=== PATIENT | female | born 1970 | race Caucasian/White ===

== ENCOUNTER 2016-09-22 20:04 | Emergency (ER) | payer OTHER ==
[~2016-09-22] VITALS: Ht 149.9 cm; Wt 73.0 kg
[~2016-09-22 20:04] MED LIST: ASC500 PO; CITA20TA6 PO; DOCU-144 PO; FLUT16SP17 NASAL; HYDR-3498 PO; LORA10TA3 PO; LORA1TAB PO; MELO-109 PO; OMEG1CAP2 PO
[2016-09-22 20:09] VITALS: Ht 149.9 cm; Wt 73.0 kg
[2016-09-22] MEDS ORDERED: IBUPROFEN 600 MG TAB PO ONE (22:00)
--- NOTE | 2016-09-22 23:10 | RADRPT ---
PROCEDURE: XR Left Ankle. CLINICAL INDICATION: Injury. Pain. TECHNIQUE: Three views of the left ankle were performed. COMPARISON: 11/21/2014 FINDINGS: There are no fractures. Joint relationships are maintained. Ankle mortise is intact. Bone minerali zation is within normal limits. Soft tissues are unremarkable. IMPRESSION: 1. No acute abnormality. RPTAT: HMVK .Mayur Cadena MD, Date Time Electronically viewed and signed by .Mayur Cadena MD, on 09/22/2016 23:10 .K/
--- NOTE | 2016-09-22 23:10 | RADRPT ---
PROCEDURE: XR Left Foot. CLINICAL INDICATION: Trauma. Pain. TECHNIQUE: AP, lateral and oblique views of the left foot was obtained. The images were reviewed on a PACS workstation. COMPARISON: None. FINDINGS: There are no fractures. Joint relationships are maintained. Bone mineralization is within normal l imits. Soft tissues are unremarkable. IMPRESSION: No acute abnormality. RPTAT: HMVK .Mayur Cadena MD, MD Date Time Electronically viewed and signed by .Mayur Cadena MD, on 09/22/2016 23:10 .K/
[2016-09-22] MEDS ORDERED: IBUP-1542 PO (23:38)
--- NOTE | 2016-09-22 23:49 | ERD ---
ER Documentation Chief Complaint Date/Time DATE: 09/22/16 TIME: 23:45 Chief Complaint PT STEPPED WRONG WITH HER L FOOT AND C/O TOE PAIN HPI Patient is a 46-year-old female who presents to the ED with left foot pain she states that she was stepping on a box to reach something in her kitchen and once she put her foot down she developed pain to the bottom of her left foot and her toes. Denies falling or any other trauma. Denies numbness or tingling. Denies radiation of pain up her legs. Denies calf pain. No swelling. She has been icing with minimal relief. She also has a history of chronic sprain in her left ankle and states this might have triggered her current foot pain. She is scheduled for surgery in her ankle next month. ROS All systems reviewed and are negative except as per history of present illness. Medications Home Meds Active Scripts Ibuprofen* (Motrin*) 600 Mg Tab, 600 MG PO Q6, #30 TAB Prov:NICO CHU PA-C 09/22/16 Lorazepam* (Lorazepam*) 1 Mg Tablet, 1 MG PO Q8H Y for ANXIETY, #10 TAB Prov:ESTHER LYNCH 04/01/16 Docusate Sodium* (Colace*) 100 Mg Capsule, 100 MG PO BID, #60 CAP Prov:PATRICIO WILD MD 01/09/16 Hydrocodone Bit-Acetaminophen* ([place]*) 5-325 Mg Tab, 1-2 TAB PO Q6 Y for PAIN, #10 TAB Prov:MARGUERITE ROBLERO [employer]ATIVE SERVICES DESIGNER 12/17/15 Reported Medications [place]-3 Acid Ethyl Esters (Lovaza) 1 Gm Capsule, 4 GM PO DAILY, CAP 04/01/16 Ascorbic Acid (Vitamin C) 500 Mg Tab, 1000 MG PO DAILY, TAB 04/01/16 Fluticasone Propionate* (Fluticasone Propionate* Nasal) 50 Mcg/[place] - 16 Gm [place].susp, 1 SPRAY NASAL DAILY, #1 BOTTLE TO EACH NOSTRIL 04/01/16 Loratadine* (Loratadine*) 10 Mg Tablet, 10 MG PO DAILY, #30 TAB 04/01/16 Meloxicam* (Meloxicam*) 7.5 Mg Tablet, 7.5 MG PO DAILY, #30 TAB 04/01/16 Citalopram Hydrobromide* (Citalopram Hydrobromide*) 20 Mg Tablet, 20 MG PO DAILY 11/21/15 Allergies Allergies: Coded Allergies: Penicillins (Verified Allergy, Mild, RASH, 04/01/16) Uncoded Allergies: IV CONTRAST (Allergy, Unknown, RASH, 06/12/15) PMhx/Soc Medical and Surgical Hx: pt denies Medical Hx, pt denies Surgical Hx History of Surgery: Yes (c section) Anesthesia Reaction: No Hx Neurological Disorder: Yes (Migraines) Hx Respiratory Disorders: No Hx Cardiac Disorders: Yes (HLD) Hx Psychiatric Problems: Yes (anxiety) Hx Miscellaneous Medical Probl: Yes (bone on bone she says left ankle in therapy) Hx Alcohol Use: No Hx Substance Use: No Hx Tobacco Use: No Physical Exam Vitals Vital Signs Date Time Temp Pulse Resp B/P Pulse Ox O2 Delivery O2 Flow Rate FiO2 09/22/16 20:09 98.3 81 18 160/76 99 Physical Exam GENERAL: Well-developed, well-nourished female. Appears in no acute distress. LUNG: Clear to auscultation bilaterally. No rhonchi, wheezing, rales or coarse breath sounds. HEART: Regular rate and rhythm. No murmurs, rubs or gallops. Extremities: Equal pulses bilaterally. No peripheral clubbing, cyanosis or edema. No unilateral leg swelling. Tenderness to the bottom of her left foot. No tenderness to her malleoli. No calf tenderness. Negative Homans sign. No erythema or swelling. Range of motion intact. Pulses intact. No open wounds or lacerations no deformities or step-offs NEUROLOGIC: Alert and oriented. Moving all four extremities. 5/5 strength in all extremities. Normal speech. Steady gait. SKIN: Normal color. Warm and dry. No rashes or lesions. Capillary refill < 2 seconds Results 24 hrs Current Medications Medications (Trade) Dose Ordered Sig/Gladys Route PRN Reason Start Time Stop Time Status Last Admin Dose Admin Ibuprofen (Motrin) 600 mg ONCE ONCE PO 09/22/16 22:00 09/22/16 22:01 DC 09/22/16 21:50 Procedures/MDM ER COURSE: I kept the patient and/or family informed of laboratory and diagnostic imaging results throughout the emergency room course. EKG, MONITORS, & DIAGNOSTIC IMAGING: [place] [id number] Radiology Main Line: [phone] DIAGNOSTIC IMAGING REPORT Patient: KINZA RAMIREZ : 1970 Age: 46 Sex: F MR #: [id number] DOS: 09/22/162133 Ordering MD: NICO CHU PA-C Location: [facility] Room/Bed: PROCEDURE: XR Left Ankle. CLINICAL INDICATION: Injury. Pain. TECHNIQUE: Three views of the left ankle were performed. COMPARISON: 11/21/2014 FINDINGS: There are no fractures. Joint relationships are maintained. Ankle mortise is intact. Bone mineralization is within normal limits. Soft tissues are unremarkable. IMPRESSION: 1. No acute abnormality. RPTAT: HMVK .Mayur Cadena MD, Date Time Electronically viewed and signed by .Mayur Cadena MD, MD on 09/22/2016 23:10 .K/ CC: NICO CHU PA-C [place] [id number] Radiology Main Line: [phone] DIAGNOSTIC IMAGING REPORT Patient: KINZA RAMIREZ : 1970 Age: 46 Sex: F MR #: [id number] DOS: 09/22/162133 Ordering MD: NICO CHU PA-C Location: [facility] Room/Bed: PROCEDURE: XR Left Foot. CLINICAL INDICATION: Trauma. Pain. TECHNIQUE: AP, lateral and oblique views of the left foot was obtained. The images were reviewed on a PACS workstation. COMPARISON: None. FINDINGS: There are no fractures. Joint relationships are maintained. Bone mineralization is within normal limits. Soft tissues are unremarkable. IMPRESSION: No acute abnormality. RPTAT: HMVK .Mayur Cadena MD, MD Date Time Electronically viewed and signed by .Mayur Cadena MD, on 09/22/2016 23:10 .K/ CC: NICO CHU PA-C PROCEDURES: [] MEDICATIONS: Ibuprofen. Told medication well with no adverse reaction MEDICAL DECISION MAKING: This is a 46-year-old female who presents with left foot pain. Vital signs were reviewed. Patient is afebrile. Patient is not hypoxic. Patient is not toxic or ill-appearing. Patient has a history of chronic ankle sprain in her left ankle. Her current injury is likely related to exacerbation of this. Low suspicion for dislocation, fracture, septic joint, compartment syndrome, osteomyelitis, cellulitis, avascular necrosis, neurological injury, vascular injury, tendon laceration. I cannot rule out any tendon or ligament injury. Patient to follow-up with orthopedics. Postop shoe was given to patient in the ED. Neurovascular intact post placement. DISCHARGE: At this time, patient is stable for discharge and outpatient management with no new complaints during the ER course. Patient was sent home with ibuprofen and post op shoe. .. Patient will be discharged home with instructions to recheck for new or worsening symptoms such as fever, nausea, weakness, LOC and to follow up with primary care in the next 1-2 days. Patient was advised to return to the ER for any new or worsening symptoms. Plan was discussed and patient and/ or family understands and agrees. Home instructions were given. Departure Diagnosis: Primary Impression: Foot pain Laterality: left Qualified Code: M79.672 - Left foot pain Condition: Stable NICO CHU PA-C Sep 22, 2016 23:49
[2016-09-23 00:25] VITALS: BP 177/87; PULSE 60; RESP 18; TEMP 98.3
== END 2016-09-23 00:25 | disposition home or self-care (01) ==
LOC: FTE 20:04
DX: S99.922A Unspecified injury of left foot, initial encounter (principal); X50.1XXA Overexertion from prolonged static or awkward postures, initial encounter; Y92.000 Kitchen of unspecified non-institutional (private) residence as the place of occurrence of the external cause
CPT/HCPCS: 73610; 73630; Z7502; Z7610

== ENCOUNTER 2016-10-27 21:51 | Emergency (ER) | payer OTHER ==
[~2016-10-27] VITALS: Ht 149.9 cm; Wt 72.0 kg
[~2016-10-27 21:51] MED LIST changes: +IBUP-1542 PO
[2016-10-27 21:57] VITALS: Ht 149.9 cm; Wt 72.0 kg
[2016-10-27] MEDS ORDERED: ATOR20TA38 PO (22:40)
[2016-10-27 22:48] LABS: ADD SCAN DIFF NO
[2016-10-27 23:01] LABS: ALBUMIN 4.7 g/dl (3.3-4.9); CHLORIDE 102 mmol/L (97-110)
[2016-10-27 23:02] LABS: SODIUM 146 mmol/L (135-144)
[2016-10-27 23:04] LABS: ALANINE AMINOTRANSFERASE 34 IU/L (13-69); ALKALINE PHOSPHATASE 92 IU/L (42-121); ANION GAP 20 (8-16); ASPARTATE AMINO TRANSFERASE 30 IU/L (15-46); BILIRUBIN,INDIRECT 0.3 mg/dl (0-1.1); BILIRUBIN,TOTAL 0.3 mg/dl (0.2-1.3); BLOOD UREA NITROGEN 13 mg/dl (7-20); CARBON DIOXIDE 27 mmol/L (21-31); CREATININE 0.79 mg/dl (0.44-1.00); TOTAL PROTEIN 8.3 g/dl (6.1-8.1)
[2016-10-27 23:05] LABS: CALCIUM 9.2 mg/dl (8.4-10.2); GLUCOSE 123 mg/dl (70-220)
[2016-10-27 23:09] LABS: INR 0.89; PT RATIO 0.9
[2016-10-27 23:10] LABS: PARTIAL THROMBOPLASTIN TIME 24.2 Sec (25.0-35.0)
[2016-10-27 23:14] LABS: B-TYPE NATRIURETIC PEPTIDE 35 PG/ML (0-125); BASOPHILS % 0.4 % (0.0-2.0); EOSINOPHILS # 0.1 10^3/ul (0.0-0.5); EOSINOPHILS % 1.3 % (0.0-7.0); HEMATOCRIT 38.3 % (37.0-47.0); HEMOGLOBIN 13.2 g/dl (12.0-16.0); MEAN CORPUSCULAR HEMOGLOBIN 30.5 pg (29.0-33.0); MEAN CORPUSCULAR HGB CONC 34.5 g/dl (32.0-37.0); MEAN CORPUSCULAR VOLUME 88.5 fl (82.0-101.0); MEAN PLATELET VOLUME 11.3 fl (7.4-10.4); MONOCYTE # 0.3 10^3/ul (0.3-0.9); NEUTROPHILS % 54.8 % (39.0-77.0); PLATELET COUNT 223 10^3/UL (140-415); RED BLOOD COUNT 4.33 10^6/ul (4.20-5.40); RED CELL DISTRIBUTION WIDTH 12.2 % (11.5-14.5); WHITE BLOOD COUNT 5.5 10^3/ul (4.8-10.8)
[2016-10-27 23:17] LABS: TROPONIN-I < 0.012 ng/ml (0.00-0.12)
[2016-10-27 23:19] LABS: POTASSIUM 2.9 mmol/L (3.5-5.1)
--- NOTE | 2016-10-27 23:26 | RADRPT ---
PROCEDURE: XR Chest. CLINICAL INDICATION: Dyspnea. TECHNIQUE: Single frontal view of the chest was obtained COMPARISON: 04/01/2016. FINDINGS: The heart and mediastinum are within normal limits. The lungs are clear. There is no pleural effusion or pneumothorax. IMPRESSION: No acute disease. RPTAT: [facility] Physician Dae Date Time Electronically viewed and signed by Costa Garcia Physician on 10/27/2016 23:26 RS/
[2016-10-27] MEDS ORDERED: POTASSIUM CHLORIDE (SR) 20 MEQ TAB PO STA (23:27)
[2016-10-28] MEDS ORDERED: HYDROCODONE/HOMATROPINE 5ML CUP PO ONE
[2016-10-28] MEDS ORDERED: AZIT250T94 PO (01:21)
[2016-10-28] MEDS ORDERED: PROM5SYR2 PO (01:21)
[2016-10-28] MEDS ORDERED: CETI1TAB6 PO (01:21)
[2016-10-28] MEDS ORDERED: PRED20TA PO (01:21)
--- NOTE | 2016-10-28 01:24 | ERD ---
ER Documentation Chief Complaint Date/Time DATE: 10/28/16 TIME: 01:22 Chief Complaint Pt with cough X 4 days and SOB and anxious 1 hour and chest pressure. HPI This is a very pleasant 46-year-old female who comes in with a cough for 4 days. She is also very anxious. Cough is mildly productive in the past 4 days. No fevers no chills. No other current complaints. ROS All systems reviewed and are negative except as per history of present illness. Medications Home Meds Active Scripts Cetirizine/Pseudoephedrine (Zyrtec-D) 5-120 Mg Tab.er.12h, 1 TAB PO Q12, #60 TAB Prov:ESTHER LYNCH 10/28/16 Promethazine HCl/Codeine (Prometh-Codein 6.25-10 mg/5 ml) 5 Ml Syrup, 5 ML PO TID for 5 Days Prov:ESTHER LYNCH. 10/28/16 Prednisone* (Prednisone*) 20 Mg Tab, 40 MG PO DAILY for 4 Days, TAB Prov:ESTHER LYNCH 10/28/16 Azithromycin* (Zithromax*) 250 Mg Tablet, 250 MG PO .ZPACK DIRECTED, #6 TAB TAKE 500 MG (2 TABS) THE FIRST DAY THEN 250 MG (1 TAB) DAYS 2-5 Prov:ESTHER LYNCH 10/28/16 Docusate Sodium* (Colace*) 100 Mg Capsule, 100 MG PO BID, #60 CAP Prov:PATRICIO WILD MD 01/09/16 Reported Medications Atorvastatin Calcium* (Atorvastatin Calcium*) 20 Mg Tablet, 20 MG PO QHS, #30 TAB 10/27/16 [place]-3 Acid Ethyl Esters (Lovaza) 1 Gm Capsule, 4 GM PO DAILY, CAP 04/01/16 Ascorbic Acid (Vitamin C) 500 Mg Tab, 1000 MG PO DAILY, TAB 04/01/16 Loratadine* (Loratadine*) 10 Mg Tablet, 10 MG PO DAILY, #30 TAB 04/01/16 Discontinued Reported Medications Fluticasone Propionate* (Fluticasone Propionate* Nasal) 50 Mcg/[place] - 16 Gm [place].susp, 1 SPRAY NASAL DAILY, #1 BOTTLE TO EACH NOSTRIL 04/01/16 Meloxicam* (Meloxicam*) 7.5 Mg Tablet, 7.5 MG PO DAILY, #30 TAB 04/01/16 Citalopram Hydrobromide* (Citalopram Hydrobromide*) 20 Mg Tablet, 20 MG PO DAILY 11/21/15 Discontinued Scripts Ibuprofen* (Motrin*) 600 Mg Tab, 600 MG PO Q6, #30 TAB Prov:NICO CHU PALuizC 09/22/16 Lorazepam* (Lorazepam*) 1 Mg Tablet, 1 MG PO Q8H Y for ANXIETY, #10 TAB Prov:ESTHER LYNCH 04/01/16 Hydrocodone Bit-Acetaminophen* ([place]*) 5-325 Mg Tab, 1-2 TAB PO Q6 Y for PAIN, #10 TAB Prov:MARGUERITE ROBLERO NP 12/17/15 Allergies Allergies: Coded Allergies: Penicillins (Verified Allergy, Mild, RASH, 04/01/16) Uncoded Allergies: IV CONTRAST (Allergy, Unknown, RASH, 06/12/15) PMhx/Soc History of Surgery: Yes (c section) Anesthesia Reaction: No Hx Neurological Disorder: Yes (Migraines) Hx Respiratory Disorders: No Hx Cardiac Disorders: Yes (HLD) Hx Psychiatric Problems: Yes (anxiety) Hx Miscellaneous Medical Probl: Yes (bone on bone she says left ankle in therapy) Hx Alcohol Use: Yes (occasional) Hx Substance Use: No Hx Tobacco Use: No Smoking Status: Never smoker Physical Exam Vitals Vital Signs Date Time Temp Pulse Resp B/P Pulse Ox O2 Delivery O2 Flow Rate FiO2 10/28/16 00:31 95 18 134/85 100 Room Air 10/27/16 21:57 97.7 106 18 176/88 100 Physical Exam Const: [] Head: Atraumatic Eyes: Normal Conjunctiva ENT: Normal External Ears, Nose and Mouth. Neck: Full range of motion..~ No meningismus. Resp: Clear to auscultation bilaterally Cardio: Regular rate and rhythm, no murmurs Abd: Soft, non tender, non distended. Normal bowel sounds Skin: No petechiae or rashes Back: No midline or flank tenderness Ext: No cyanosis, or edema Neur: Awake and alert Psych: Normal Mood and Affect Result Diagram: 3/20/17 2230 3/20/17 2230 Results 24 hrs Laboratory Tests Test 10/27/16 22:30 Activated Partial Thromboplast Time 24.2Sec Alanine Aminotransferase (ALT/SGPT) 34IU/L Albumin 4.7g/dl Albumin/Globulin Ratio 1.30 Alkaline Phosphatase 92IU/L Anion Gap 20 Aspartate Amino Transf (AST/SGOT) 30IU/L B-Type Natriuretic Peptide 35PG/ML Basophils # 0.010^3/ul Basophils % 0.4% Blood Urea Nitrogen 13mg/dl Calcium Level 9.2mg/dl Carbon Dioxide Level 27mmol/L Chloride Level 102mmol/L Creatinine 0.79mg/dl Direct Bilirubin 0.00mg/dl Eosinophils # 0.110^3/ul Eosinophils % 1.3% Globulin 3.60g/dl Glucose Level 123mg/dl Hematocrit 38.3% Hemoglobin 13.2g/dl INR International Normalized Ratio 0.89 Indirect Bilirubin 0.3mg/dl Lymphocytes # 2.010^3/ul Lymphocytes % 37.0% Mean Corpuscular Hemoglobin 30.5pg Mean Corpuscular Hemoglobin Concent 34.5g/dl Mean Corpuscular Volume 88.5fl Mean Platelet Volume 11.3fl Monocytes # 0.310^3/ul Monocytes % 6.0% Neutrophils # 3.010^3/ul Neutrophils % 54.8% Nucleated Red Blood Cells # 0.010^3/ul Nucleated Red Blood Cells % 0.0/100WBC Platelet Count 29336^3/UL Potassium Level 2.9mmol/L Prothrombin Time 12.0Sec Prothrombin Time Ratio 0.9 Red Blood Count 4.3310^6/ul Red Cell Distribution Width 12.2% Sodium Level 146mmol/L Total Bilirubin 0.3mg/dl Total Protein 8.3g/dl Troponin I < 0.012ng/ml White Blood Count 5.510^3/ul Current Medications Medications (Trade) Dose Ordered Sig/Gladys Route PRN Reason Start Time Stop Time Status Last Admin Dose Admin Potassium Chloride (Klor-Con 20) 40 meq ONCE STAT PO 10/27/16 23:27 10/27/16 23:31 DC 10/27/16 23:34 Hydrocodone Bit/ Homatropine Methylb (Hycodan Liquid) 5 ml ONCE ONCE PO 10/28/16 00:00 10/28/16 00:01 DC 10/28/16 00:41 Procedures/MDM EKG: Rate/Rhythm: Normal Sinus Rhythm QRS, ST, T-waves: No changes consistent w/ acute ischemia Impression: No evidence of ischemia or arrhythmia Chest X-ray 1V Interpreted by me: Soft Tissue: No acute abnormalities Bones: No acute abnormalities Mediastinum/Cardiac Silhouette/Lungs: No acute abnormalities Medical decision-makin-year-old female comes in essentially for bronchitic cough. She feels much better. At this point clinically stable. Negative cardiac workup. Discharged home with antibiotics and breathing treatments and prednisone. Follow with PCP. Return for worsening symptoms. Departure Diagnosis: Primary Impression: Cough Condition: Stable Patient Instructions: Bronchitis, Antiobiotic Treatment (Adult) ESTHER LYNCH Oct 28, 2016 01:24
[2016-10-28 01:32] VITALS: BP 138/77; PULSE 97; RESP 16
== END 2016-10-28 01:40 | disposition home or self-care (01) ==
LOC: E/R 21:51
DX: R05 Cough (principal); R06.02 Shortness of breath
CPT/HCPCS: 36415; 71010; 80053; 83880; 84484; 85025; 85610; 85730; 93005; Z7502; Z7610

== ENCOUNTER 2016-12-09 14:13 | Emergency (ER) | payer OTHER ==
[~2016-12-09] VITALS: Ht 152.4 cm; Wt 71.5 kg
[~2016-12-09 14:13] MED LIST changes: +ATOR20TA38 PO; +AZIT250T94 PO; +CETI1TAB6 PO; -CITA20TA6 PO; -FLUT16SP17 NASAL; -HYDR-3498 PO; -IBUP-1542 PO; -LORA1TAB PO; -MELO-109 PO; +PRED20TA PO; +PROM5SYR2 PO
[2016-12-09 14:54] VITALS: Ht 152.4 cm; Wt 71.5 kg
[2016-12-09] MEDS ORDERED: DICLOFENAC SODIUM 37.5 MG/ML VIAL IV STA (15:55)
[2016-12-09] MEDS ORDERED: ONDANSETRON 4 MG INJ IV STA (15:55)
[2016-12-09] MEDS ORDERED: SOD CHLORIDE 0.9% 1,000 ML IV STA (15:55)
[2016-12-09 16:36] LABS: ADD SCAN DIFF NO
[2016-12-09 16:39] LABS: BASOPHILS % 0.1 % (0.0-2.0); EOSINOPHILS % 0.4 % (0.0-7.0); HEMATOCRIT 40.7 % (37.0-47.0); HEMOGLOBIN 13.8 g/dl (12.0-16.0); LYMPHOCYTES # 0.8 10^3/ul (0.8-2.9); LYMPHOCYTES % 8.9 % (15.0-51.0); MEAN CORPUSCULAR HGB CONC 33.9 g/dl (32.0-37.0); MEAN CORPUSCULAR VOLUME 88.5 fl (82.0-101.0); MEAN PLATELET VOLUME 11.3 fl (7.4-10.4); MONOCYTE # 0.4 10^3/ul (0.3-0.9); MONOCYTES % 4.7 % (0.0-11.0); NEUTROPHIL # 7.3 10^3/ul (1.6-7.5); NEUTROPHILS % 85.5 % (39.0-77.0); PLATELET COUNT 230 10^3/UL (140-415); RED CELL DISTRIBUTION WIDTH 12.5 % (11.5-14.5); WHITE BLOOD COUNT 8.5 10^3/ul (4.8-10.8)
[2016-12-09 16:49] LABS: ALBUMIN 4.8 g/dl (3.3-4.9)
[2016-12-09 16:51] LABS: BILIRUBIN,INDIRECT 1.5 mg/dl (0-1.1); BILIRUBIN,TOTAL 1.5 mg/dl (0.2-1.3); CREATININE 0.78 mg/dl (0.44-1.00)
[2016-12-09 16:52] LABS: ALBUMIN/GLOBULIN RATIO 1.33; CALCIUM 9.7 mg/dl (8.4-10.2); TOTAL PROTEIN 8.4 g/dl (6.1-8.1)
[2016-12-09] MEDS ORDERED: IMO2 PO (17:36)
[2016-12-09] MEDS ORDERED: CIPR750T3 PO (17:36)
[2016-12-09] MEDS ORDERED: ONDA4TAB14 PO (17:36)
--- NOTE | 2016-12-09 18:31 | ERD ---
ER Documentation Chief Complaint Date/Time DATE: 12/09/16 TIME: 18:26 Chief Complaint Pt with diarrhea, nausea and AP since last night. HPI 46-year-old female with a history of high cholesterol presenting with abdominal pain. She states the pain started yesterday after she returned from [place]. She has been having cramping, intermittent abdominal pain, diffuse, with associated nausea and multiple episodes of nonbloody, watery diarrhea. She denies any associated vomiting. She has had some chills but no fevers. She denies any associated dysuria or hematuria. ROS All systems reviewed and are negative except as per history of present illness. Medications Home Meds Active Scripts Ciprofloxacin Hcl* (Ciprofloxacin Hcl*) 750 Mg Tablet, 750 MG PO DAILY for 3 Days, TAB Prov:LENIN TOM MD 12/09/16 Loperamide Hcl* (Loperamide Hcl*) 2 Mg Cap, 2 MG PO Q4 Y for DIARRHEA, #30 CAP Prov:LENIN TOM MD 12/09/16 Ondansetron (Ondansetron Odt) 4 Mg Tab.rapdis, 4 MG PO Q6H Y for NAUSEA AND/OR VOMITING, #10 TAB Prov:LENIN TOM MD 12/09/16 Cetirizine/Pseudoephedrine (Zyrtec-D) 5-120 Mg Tab.er.12h, 1 TAB PO Q12, #60 TAB Prov:ESTHER LYNCH 10/28/16 Promethazine HCl/Codeine (Prometh-Codein 6.25-10 mg/5 ml) 5 Ml Syrup, 5 ML PO TID for 5 Days Prov:ESTHER LYNCH 10/28/16 Prednisone* (Prednisone*) 20 Mg Tab, 40 MG PO DAILY for 4 Days, TAB Prov:ESTHER LYNCH 10/28/16 Azithromycin* (Zithromax*) 250 Mg Tablet, 250 MG PO .THIAGO DIRECTED, #6 TAB TAKE 500 MG (2 TABS) THE FIRST DAY THEN 250 MG (1 TAB) DAYS 2-5 Prov:ESTHER LYNCH 10/28/16 Docusate Sodium* (Colace*) 100 Mg Capsule, 100 MG PO BID, #60 CAP Prov:PATRICIO WILD MD 01/09/16 Reported Medications Atorvastatin Calcium* (Atorvastatin Calcium*) 20 Mg Tablet, 20 MG PO QHS, #30 TAB 10/27/16 [place]-3 Acid Ethyl Esters (Lovaza) 1 Gm Capsule, 4 GM PO DAILY, CAP 04/01/16 Ascorbic Acid (Vitamin C) 500 Mg Tab, 1000 MG PO DAILY, TAB 04/01/16 Loratadine* (Loratadine*) 10 Mg Tablet, 10 MG PO DAILY, #30 TAB 04/01/16 Allergies Allergies: Coded Allergies: Penicillins (Verified Allergy, Mild, RASH, 12/09/16) Uncoded Allergies: IV CONTRAST (Allergy, Unknown, RASH, 06/12/15) PMhx/Soc History of Surgery: Yes (c section; gallbladder surgery) Anesthesia Reaction: No Hx Neurological Disorder: Yes (Migraines) Hx Respiratory Disorders: No Hx Cardiac Disorders: Yes (hypertension; hypercholesterolemia) Hx Psychiatric Problems: Yes (anxiety) Hx Miscellaneous Medical Probl: Yes (bone on bone she says left ankle in therapy) Hx Alcohol Use: Yes (occasional) Hx Substance Use: No Hx Tobacco Use: No Smoking Status: Never smoker FmHx Family History: No diabetes Physical Exam Vitals Vital Signs Date Time Temp Pulse Resp B/P Pulse Ox O2 Delivery O2 Flow Rate FiO2 12/09/16 14:54 99.7 93 18 136/86 98 Physical Exam Const: No apparent distress, nontoxic Head: Atraumatic Eyes: Normal Conjunctiva, PERRLA, EOMI ENT: Normal External Ears, Nose and Mouth. Neck: Full range of motion..~ No meningismus. Resp: Clear to auscultation bilaterally Cardio: Regular rate and rhythm, no murmurs Abd: Soft, non tender but diffuse discomfort on palpation, non distended. No rebound or guarding. No hepatomegaly. Hyperactive bowel sounds Skin: No petechiae or rashes, no jaundice Back: No midline or flank tenderness Ext: No cyanosis, or edema Neur: Awake and alert Psych: Normal Mood and Affect Result Diagram: 12/09/16 1610 12/09/16 1610 Results 24 hrs Laboratory Tests Test 12/09/16 16:10 White Blood Count 8.510^3/ul Red Blood Count 4.6010^6/ul Hemoglobin 13.8g/dl Hematocrit 40.7% Mean Corpuscular Volume 88.5fl Mean Corpuscular Hemoglobin 30.0pg Mean Corpuscular Hemoglobin Concent 33.9g/dl Red Cell Distribution Width 12.5% Platelet Count 18304^3/UL Mean Platelet Volume 11.3fl Neutrophils % 85.5% Lymphocytes % 8.9% Monocytes % 4.7% Eosinophils % 0.4% Basophils % 0.1% Nucleated Red Blood Cells % 0.0/100WBC Neutrophils # 7.310^3/ul Lymphocytes # 0.810^3/ul Monocytes # 0.410^3/ul Eosinophils # 0.010^3/ul Basophils # 0.010^3/ul Nucleated Red Blood Cells # 0.010^3/ul Sodium Level 140mmol/L Potassium Level 4.0mmol/L Chloride Level 101mmol/L Carbon Dioxide Level 27mmol/L Anion Gap 16 Blood Urea Nitrogen 18mg/dl Creatinine 0.78mg/dl Glucose Level 89mg/dl Calcium Level 9.7mg/dl Total Bilirubin 1.5mg/dl Direct Bilirubin 0.00mg/dl Indirect Bilirubin 1.5mg/dl Aspartate Amino Transf (AST/SGOT) 25IU/L Alanine Aminotransferase (ALT/SGPT) 33IU/L Alkaline Phosphatase 94IU/L Total Protein 8.4g/dl Albumin 4.8g/dl Globulin 3.60g/dl Albumin/Globulin Ratio 1.33 Lipase 140U/L Current Medications Medications (Trade) Dose Ordered Sig/Gladys Route PRN Reason Start Time Stop Time Status Last Admin Dose Admin Sodium Chloride (NS) 1,000 ml @ 1,000 mls/hr Q1H STAT IV 12/09/16 15:55 12/09/16 16:54 DC 12/09/16 16:14 Ondansetron HCl (Zofran Inj) 4 mg ONCE STAT IV 12/09/16 15:55 12/09/16 15:59 DC 12/09/16 16:19 Diclofenac Sodium (Dyloject) 37.5 mg ONCE STAT IV 12/09/16 15:55 12/09/16 15:59 DC 12/09/16 16:19 Procedures/MDM Labs: CBC shows no significant abnormality CMP shows slightly elevated bilirubin, otherwise normal Patient is presenting with diffuse abdominal pain with associated nausea and diarrhea. Differential includes but is not limited to small bowel obstruction, perforated viscous, constipation, volvulus, colitis, gastroenteritis. I have a low suspicion for a pelvic etiology. Blood work showed no significant abnormalities. She was given IV fluids, pain medication and anti-emetics with significant improvement in her symptoms. She was able to tolerate fluids by mouth prior to discharge. I did a repeat abdominal exam on her and it was unremarkable. I have a low suspicion for an acute surgical abdomen at this time. There is no evidence of hepatitis. I suspect her symptoms are secondary to traveler's diarrhea versus viral gastroenteritis. I will discharge the patient with 3 days of Cipro, loperamide as needed, and Zofran as needed. I advised she return for any worsening symptoms in the next 8-12 hours. Patient is amenable to the plan and will return for worsening symptoms. Departure Diagnosis: Primary Impression: Abdominal cramps Additional Impression: Diarrhea Diarrhea type: presumed infectious Qualified Code: A09 - Diarrhea of presumed infectious origin Condition: Stable Patient Instructions: Abdominal Pain, Traveler's Diarrhea (6Y-Adult) Additional Instructions: Return to the ER for any worsening symptoms. LENIN TOM MD December 09, 2016 18:31
[2016-12-09 18:42] VITALS: BP 124/62; PULSE 64; RESP 18; TEMP 98.4
== END 2016-12-09 18:44 | disposition home or self-care (01) ==
LOC: FTE 14:13
DX: R10.84 Generalized abdominal pain (principal); A09 Infectious gastroenteritis and colitis, unspecified; I10 Essential (primary) hypertension; R11.0 Nausea
CPT/HCPCS: 36415; 80053; 83690; 85025; 96374; 96375; J2405; J7030; Z7502; Z7610

== ENCOUNTER 2017-03-27 21:16 | Emergency (ER) | payer OTHER ==
[~2017-03-27] VITALS: Ht 149.9 cm; Wt 73.5 kg
[~2017-03-27 21:16] MED LIST changes: +CIPR750T3 PO; +IMO2 PO; +ONDA4TAB14 PO
[2017-03-27 21:59] VITALS: Ht 149.9 cm; Wt 73.5 kg
--- NOTE | 2017-03-27 23:17 | ERA ---
ER Documentation Chief Complaint Date/Time DATE: 03/27/17 TIME: 23:17 Chief Complaint ABDOMINAL PAIN RADIATING TO LEFT FLANK HPI 5-year-old female presents with a chief complaint of urinary frequency and urgency 1 week. Also describes pelvic fullness. Patient denies fever, chills , inability to tolerate p.o., diarrhea, constipation, dysuria or hematuria. Patient states that the pain radiates the back. No similar symptoms in the past. Patient has taken Advil with minimal relief of symptoms. During my evaluation the patient denied right upper quadrant abdominal pain. Patient denies any aggravating or alleviating factors including food or passing stools. History of cholecystectomy. Denies alcohol or recreational drug use. Patient has no other complaints and describes no other associated manifestations. Nursing notes have been reviewed and are consistent with history given. ROS All systems reviewed and are negative except as per history of present illness. Medications Home Meds Active Scripts Ciprofloxacin Hcl* (Ciprofloxacin Hcl*) 750 Mg Tablet, 750 MG PO DAILY for 3 Days, TAB Prov:LENIN TOM MD 12/09/16 Loperamide Hcl* (Loperamide Hcl*) 2 Mg Cap, 2 MG PO Q4 Y for DIARRHEA, #30 CAP Prov:LENIN TOM MD 12/09/16 Ondansetron (Ondansetron Odt) 4 Mg Tab.rapdis, 4 MG PO Q6H Y for NAUSEA AND/OR VOMITING, #10 TAB Prov:LENIN TOM MD 12/09/16 Cetirizine/Pseudoephedrine (Zyrtec-D) 5-120 Mg Tab.er.12h, 1 TAB PO Q12, #60 TAB Prov:ESTHER LYNCH 10/28/16 Promethazine HCl/Codeine (Prometh-Codein 6.25-10 mg/5 ml) 5 Ml Syrup, 5 ML PO TID for 5 Days Prov:ESTHER LYNCH 10/28/16 Prednisone* (Prednisone*) 20 Mg Tab, 40 MG PO DAILY for 4 Days, TAB Prov:ESTHER LYNCH 10/28/16 Azithromycin* (Zithromax*) 250 Mg Tablet, 250 MG PO .LORICK DIRECTED, #6 TAB TAKE 500 MG (2 TABS) THE FIRST DAY THEN 250 MG (1 TAB) DAYS 2-5 Prov:RITESHPEMAESTHER Jarocho 10/28/16 Docusate Sodium* (Colace*) 100 Mg Capsule, 100 MG PO BID, #60 CAP Prov:PATRICIO WILD MD 01/09/16 Reported Medications Atorvastatin Calcium* (Atorvastatin Calcium*) 20 Mg Tablet, 20 MG PO QHS, #30 TAB 10/27/16 [place]-3 Acid Ethyl Esters (Lovaza) 1 Gm Capsule, 4 GM PO DAILY, CAP 04/01/16 Ascorbic Acid (Vitamin C) 500 Mg Tab, 1000 MG PO DAILY, TAB 04/01/16 Loratadine* (Loratadine*) 10 Mg Tablet, 10 MG PO DAILY, #30 TAB 04/01/16 Allergies Allergies: Coded Allergies: Penicillins (Verified Allergy, Mild, RASH, 12/09/16) Uncoded Allergies: IV CONTRAST (Allergy, Unknown, RASH, 06/12/15) PMhx/Soc History of Surgery: Yes (c section; gallbladder surgery, tubal) Anesthesia Reaction: No Hx Neurological Disorder: Yes (Migraines) Hx Respiratory Disorders: No Hx Cardiac Disorders: Yes (hypertension; hypercholesterolemia) Hx Psychiatric Problems: Yes (anxiety) Hx Miscellaneous Medical Probl: Yes (bone on bone she says left ankle in therapy) Hx Alcohol Use: Yes (occasional) Hx Substance Use: No Hx Tobacco Use: No Smoking Status: Never smoker Physical Exam Vitals Vital Signs Date Time Temp Pulse Resp B/P Pulse Ox O2 Delivery O2 Flow Rate FiO2 03/27/17 21:59 98.6 66 12 163/87 98 Physical Exam Const: Healthy-appearing. No acute distress. Head: Normocephalic, Atraumatic. Eyes: Non-injected; No discharge or foreign body. EOMI and LOIDA bilaterally. Ears: Normal External Ears, EACs clear, TM normal bilaterally without erythema. Nose: Normal external nose; no discharge, septal deviation, or sinus tenderness. Oral: No oral edema visualized. Mucous membranes moist and pink. Neck: No cervical lymphadenopathy or . Trachea midline. Supple ~ No meningismus. Pulm: Good air movement in upper and lower respiratory tracts. No dyspnea, stridor, tripoding or drooling. Clear to auscultation bilaterally. Cardio: Regular rate and rhythm; No murmurs, gallops or rubs auscultated. No JVD grossly observed. Radial and posterior tibial pulses 2+ bilaterally. No cyanosis. Capillary refill less than 2 seconds. Abd: Soft, non tender, non distended. No guarding, masses. Normal bowel sounds. No McBurney's point tenderness. MS: Normal motor strength, normal tone with gross examination. Skin: No petechiae or rashes. No ulcer, induration, jaundice. Good turgor. Back: No midline, flank or CVA tenderness. Ext: No edema. Normal movement of all extremities grossly observed. Neur: Awake, alert and oriented x3. Neurovascularly intact bilaterally. Psych: Normal Mood and Affect. Result Diagram: 03/28/17 0020 03/28/17 0020 Results 24 hrs Laboratory Tests Test 03/27/17 23:20 03/28/17 00:20 Urine Color STRAW Urine Clarity CLEAR Urine pH 6.0 Urine Specific [place] 1.006 Urine Ketones NEGATIVEmg/dL Urine Nitrite NEGATIVEmg/dL Urine Bilirubin NEGATIVEmg/dL Urine Urobilinogen NEGATIVEmg/dL Urine Leukocyte Esterase NEGATIVELeu/ul Urine Microscopic RBC 1/HPF Urine Microscopic WBC 0/HPF Urine Hemoglobin 1+mg/dL Urine Glucose NEGATIVEmg/dL Urine Total Protein NEGATIVEmg/dl White Blood Count 6.510^3/ul Red Blood Count 4.5810^6/ul Hemoglobin 13.8g/dl Hematocrit 40.1% Mean Corpuscular Volume 87.6fl Mean Corpuscular Hemoglobin 30.1pg Mean Corpuscular Hemoglobin Concent 34.4g/dl Red Cell Distribution Width 12.6% Platelet Count 64289^3/UL Mean Platelet Volume 11.0fl Neutrophils % 54.1% Lymphocytes % 34.9% Monocytes % 7.6% Eosinophils % 2.2% Basophils % 0.6% Nucleated Red Blood Cells % 0.0/100WBC Neutrophils # (Manual) 410^3/ul Lymphocytes # 2.310^3/ul Monocytes # 0.510^3/ul Eosinophils # 0.110^3/ul Basophils # 0.010^3/ul Nucleated Red Blood Cells # 0.010^3/ul Sodium Level 143mmol/L Potassium Level 3.9mmol/L Chloride Level 101mmol/L Carbon Dioxide Level 27mmol/L Anion Gap 19 Blood Urea Nitrogen 15mg/dl Creatinine 0.81mg/dl Glucose Level 92mg/dl Calcium Level 9.6mg/dl Total Bilirubin 0.3mg/dl Direct Bilirubin 0.00mg/dl Indirect Bilirubin 0.3mg/dl Aspartate Amino Transf (AST/SGOT) 26IU/L Alanine Aminotransferase (ALT/SGPT) 38IU/L Alkaline Phosphatase 92IU/L Total Protein 8.6g/dl Albumin 4.8g/dl Globulin 3.80g/dl Albumin/Globulin Ratio 1.26 Lipase 239U/L Current Medications Medications (Trade) Dose Ordered Sig/Gladys Route PRN Reason Start Time Stop Time Status Last Admin Dose Admin Sodium Chloride (NS) 1,000 ml @ 1,000 mls/hr Q1H STAT IV 03/27/17 23:59 03/28/17 00:58 DC 03/28/17 00:30 Ondansetron HCl (Zofran Inj) 4 mg ONCE STAT IV 03/27/17 23:59 03/28/17 00:07 DC Ketorolac Tromethamine (Toradol) 30 mg ONCE STAT IV 03/28/17 00:59 03/28/17 01:00 DC 03/28/17 01:15 Procedures/MDM Patient was evaluated and worked up for abdominal discomfort as described in history and physical examination. History of cholecystectomy. ED treatment consisted of ondansetron 4 mg IV, 1 L bolus normal saline, morphine 4 mg IV with adequate relief of symptoms. Workup included the following: CBC: Unremarkable. CMP: +19 anion gap. Otherwise unremarkable. Lipase: Within normal limits Urinalysis: 1+ hemoglobin. Otherwise unremarkable. Ultrasound was ordered, read by the radiologist given the following impression: 1. Status post cholecystectomy. 2. No biliary dilatation. 3. Fatty infiltration of the liver. 4. 4 mm nonobstructing right renal stone. Most likely diagnosis is nephrolithiasis as described in the radiology report versus abdominal pain due to unknown etiology. Outpatient treatment will thus include acetaminophen for discomfort. At this time I do not suspect appendicitis , pathologies, ovarian torsion, pyelonephritis, intestinal ischemia, peritonitis, perforated viscus, acute pancreatitis, cholangitis, mechanical obstruction, AAA, or other causes of an acute abdomen. On repeat exam, the abdominal exam remained the same was largely unremarkable. The patient is well appearing, and tolerates PO. I have spoke with the patient regarding their condition and future management. They have verbally responded that they understand their status and treatment plan. The patients vitals are stable, and their current condition is appropriate for discharge. The patient will be given discharge instructions with return precautions. Departure Diagnosis: Primary Impression: Nephrolithiasis Additional Impression: Abdominal pain Qualified Code: R10.9 - Abdominal pain, unspecified location Condition: Stable Additional Instructions: Follow up with your PCP within the next 1-3 days for a more thorough evaluation and a possible referral to a specialist. Return the the emergency department immediately if symptoms worsen or change. If you have any questions regarding medications, ask your pharmacist or us before you leave. If any adverse reactions occur while taking your medications, discontinue the treatment and return to the emergency department immediately. Take your medications as directed, and complete the entire course of treatment. ARIAS COPPOLA PA-C Mar 27, 2017 23:17
[2017-03-27 23:47] LABS: ADD UMIC YES; UR ASCORBIC ACID NEGATIVE (NEGATIVE); UR BILIRUBIN (Dip) NEGATIVE (NEGATIVE); UR BLOOD (Dip) 1+ mg/dL (NEGATIVE); UR CLARITY CLEAR (CLEAR); UR COLOR STRAW (YELLOW); UR GLUCOSE (Dip) NEGATIVE (NEGATIVE); UR KETONES (Dip) NEGATIVE (NEGATIVE); UR LEUKOCYTE ESTERASE (Dip) NEGATIVE Leu/ul (NEGATIVE); UR NITRITE (Dip) NEGATIVE (NEGATIVE); UR RBC 1 /HPF (0-5); UR SPECIFIC GRAVITY (Dip) 1.006 (1.003-1.030); UR TOTAL PROTEIN (Dip) NEGATIVE (NEGATIVE); UR UROBILINOGEN (Dip) NEGATIVE (NEGATIVE)
[2017-03-27] MEDS ORDERED: SOD CHLORIDE 0.9% 1,000 ML IV STA (23:59)
[2017-03-28] MEDS: ONDANSETRON 4 MG INJ IV STA ×2 (00:30→00:31)
[2017-03-28 00:41] LABS: BASOPHILS % 0.6 % (0.0-2.0); EOSINOPHILS # 0.1 10^3/ul (0.0-0.5); EOSINOPHILS % 2.2 % (0.0-7.0); HEMATOCRIT 40.1 % (37.0-47.0); HEMOGLOBIN 13.8 g/dl (12.0-16.0); LYMPHOCYTES # 2.3 10^3/ul (0.8-2.9); LYMPHOCYTES % 34.9 % (15.0-51.0); MEAN CORPUSCULAR HEMOGLOBIN 30.1 pg (29.0-33.0); MEAN CORPUSCULAR HGB CONC 34.4 g/dl (32.0-37.0); MEAN CORPUSCULAR VOLUME 87.6 fl (82.0-101.0); MONOCYTE # 0.5 10^3/ul (0.3-0.9); MONOCYTES % 7.6 % (0.0-11.0); NEUTROPHILS % 54.1 % (39.0-77.0); PLATELET COUNT 245 10^3/UL (140-415); RED BLOOD COUNT 4.58 10^6/ul (4.20-5.40); RED CELL DISTRIBUTION WIDTH 12.6 % (11.5-14.5); WHITE BLOOD COUNT 6.5 10^3/ul (4.8-10.8)
[2017-03-28] MEDS ORDERED: KETOROLAC 30 MG INJ IV STA (00:59)
[2017-03-28 01:05] LABS: ALBUMIN 4.8 g/dl (3.3-4.9); ALBUMIN/GLOBULIN RATIO 1.26; BILIRUBIN,INDIRECT 0.3 mg/dl (0-1.1); BILIRUBIN,TOTAL 0.3 mg/dl (0.2-1.3); CALCIUM 9.6 mg/dl (8.4-10.2); CREATININE 0.81 mg/dl (0.44-1.00); POTASSIUM 3.9 mmol/L (3.5-5.1); TOTAL PROTEIN 8.6 g/dl (6.1-8.1)
--- NOTE | 2017-03-28 01:22 | RADRPT ---
PROCEDURE: Right upper quadrant ultrasound. CLINICAL INDICATION: Abdominal pain. TECHNIQUE: Multiple real-time longitudinal and transverse images of the right upper quadrant of th e abdomen were acquired utilizing a curved array transducer. Images were reviewed on a high-resoluti on PACS workstation. COMPARISON: 12/17/2015. FINDINGS: The pancreas head and body are unremarkable. The pancreas tail is not well seen. The liver is echogenic. The liver measures 14.9 cm in length. No hepatic lesion or intrahepatic bi liary ductal dilatation is seen. The portal vein is patent with hepatopetal flow. The patient is status post cholecystectomy. The common bile duct measures 6 mm in diameter, not dila ingrid. The right kidney measures 11.6 cm in length. Renal parenchymal echogenicity is normal. There is a 4 mm nonobstructing stone in the right kidney. There is no hydronephrosis or renal mass The visualized portions of the aorta and IVC are unremarkable. IMPRESSION: 1. Status post cholecystectomy. 2. No biliary dilatation. 3. Fatty infiltration of the liver. 4. 4 mm nonobstructing right renal stone. RPTAT: HTAR .Scotty Caldwell MD, Date Time Electronically viewed and signed by .Scotty Caldwell MD, on 03/28/2017 01:22 .R/
[2017-03-28] MEDS ORDERED: IBUP400T22 PO ×2 (01:29→02:10)
[2017-03-28 02:00] VITALS: BP 160/82; PULSE 59; RESP 12; TEMP 98.2
== END 2017-03-28 02:00 | disposition home or self-care (01) ==
LOC: FTE 21:16
DX: N20.0 Calculus of kidney (principal); I10 Essential (primary) hypertension
CPT/HCPCS: 36415; 76705; 80053; 81001; 83690; 85025; 96374; J1885; J2405; J7030; Z7502

== ENCOUNTER 2017-03-31 15:49 | Emergency (ER) | payer OTHER ==
[~2017-03-31] VITALS: Ht 152.4 cm; Wt 72.0 kg
[~2017-03-31 15:49] MED LIST changes: +IBUP400T22 PO
[2017-03-31 16:00] VITALS: Ht 152.4 cm; Wt 72.0 kg
[2017-03-31] MEDS ORDERED: KETOROLAC 15 MG INJ IV STA (18:30)
[2017-03-31] MEDS ORDERED: SOD CHLORIDE 0.9% 500 ML IV STA (18:30)
[2017-03-31] MEDS ORDERED: ONDANSETRON 4 MG INJ IV STA (18:30)
[2017-03-31] MEDS ORDERED: morphine 4 MG/ML VIAL IV STA (18:30)
[2017-03-31] MEDS ORDERED: LOSA25TA5 PO (18:39)
[2017-03-31] MEDS ORDERED: FENO145T19 PO (18:39)
[2017-03-31 18:54] LABS: BASOPHILS % 0.3 % (0.0-2.0); EOSINOPHILS # 0.1 10^3/ul (0.0-0.5); EOSINOPHILS % 1.1 % (0.0-7.0); HEMATOCRIT 43.2 % (37.0-47.0); HEMOGLOBIN 14.9 g/dl (12.0-16.0); LYMPHOCYTES # 1.7 10^3/ul (0.8-2.9); LYMPHOCYTES % 26.9 % (15.0-51.0); MEAN CORPUSCULAR HGB CONC 34.5 g/dl (32.0-37.0); MEAN CORPUSCULAR VOLUME 86.9 fl (82.0-101.0); MONOCYTE # 0.3 10^3/ul (0.3-0.9); MONOCYTES % 4.9 % (0.0-11.0); NEUTROPHILS % 66.3 % (39.0-77.0); PLATELET COUNT 255 10^3/UL (140-415); RED BLOOD COUNT 4.97 10^6/ul (4.20-5.40); RED CELL DISTRIBUTION WIDTH 12.7 % (11.5-14.5); WHITE BLOOD COUNT 6.3 10^3/ul (4.8-10.8)
[2017-03-31 19:02] LABS: ADD UMIC YES; UR ASCORBIC ACID NEGATIVE (NEGATIVE); UR BILIRUBIN (Dip) NEGATIVE (NEGATIVE); UR BLOOD (Dip) 1+ mg/dL (NEGATIVE); UR CLARITY CLEAR (CLEAR); UR COLOR STRAW (YELLOW); UR GLUCOSE (Dip) NEGATIVE (NEGATIVE); UR KETONES (Dip) NEGATIVE (NEGATIVE); UR LEUKOCYTE ESTERASE (Dip) NEGATIVE Leu/ul (NEGATIVE); UR NITRITE (Dip) NEGATIVE (NEGATIVE); UR RBC 0 /HPF (0-5); UR SPECIFIC GRAVITY (Dip) 1.004 (1.003-1.030); UR TOTAL PROTEIN (Dip) NEGATIVE (NEGATIVE); UR UROBILINOGEN (Dip) NEGATIVE (NEGATIVE)
--- NOTE | 2017-03-31 19:06 | ERD ---
ER Documentation Chief Complaint Date/Time DATE: 03/31/17 TIME: 19:04 Chief Complaint left flank pain HPI This is a 46-year-old female who presents with left flank pain. She describes it as moderate to severe, worse with movement and somewhat constant. She was seen here 4 days ago and diagnosed with a kidney stone but she only had an ultrasound that showed a right renal stone. She denies any dysuria urgency or frequency, no fevers or chills. Pain only mildly alleviated by Motrin. No chest pain or shortness of breath and no pleuritic pain. ROS All systems reviewed and are negative except as per history of present illness. Medications Home Meds Active Scripts Hydrocodone/Acetaminophen ([place] 10-325 Tablet) 1 Each Tablet, 1 TAB PO Q6H Y for PAIN, #7 TAB Prov:EVELIA HACKETT MD 03/31/17 Ibuprofen* (Motrin*) 800 Mg Tab, 800 MG PO Q6H Y for PAIN AND OR ELEVATED TEMP, #30 TAB Prov:EVELIA HACKETT MD 03/31/17 Diazepam* (Valium*) 5 Mg Tablet, 5 MG PO Q8 Y for MUSCLE SPASMS, #10 TAB Prov:EVELIA HACKETT MD 03/31/17 Reported Medications Fenofibrate Nanocrystallized* (Fenofibrate*) 145 Mg Tablet, 145 MG PO DAILY, TAB 03/31/17 Losartan Potassium* (Losartan Potassium*) 25 Mg Tablet, 25 MG PO DAILY, TAB 03/31/17 Discontinued Reported Medications Atorvastatin Calcium* (Atorvastatin Calcium*) 20 Mg Tablet, 20 MG PO QHS, #30 TAB 10/27/16 [place]-3 Acid Ethyl Esters (Lovaza) 1 Gm Capsule, 4 GM PO DAILY, CAP 04/01/16 Ascorbic Acid (Vitamin C) 500 Mg Tab, 1000 MG PO DAILY, TAB 04/01/16 Loratadine* (Loratadine*) 10 Mg Tablet, 10 MG PO DAILY, #30 TAB 04/01/16 Discontinued Scripts Ibuprofen* (Motrin*) 400 Mg Tab, 400 MG PO Q6, #30 TAB Prov:RADHA CEJA NP 03/28/17 Ciprofloxacin Hcl* (Ciprofloxacin Hcl*) 750 Mg Tablet, 750 MG PO DAILY for 3 Days, TAB Prov:LENIN TOM MD 12/09/16 Loperamide Hcl* (Loperamide Hcl*) 2 Mg Cap, 2 MG PO Q4 Y for DIARRHEA, #30 CAP Prov:LENIN TOM MD 12/09/16 Ondansetron (Ondansetron Odt) 4 Mg Tab.rapdis, 4 MG PO Q6H Y for NAUSEA AND/OR VOMITING, #10 TAB Prov:LENIN TOM MD 12/09/16 Cetirizine/Pseudoephedrine (Zyrtec-D) 5-120 Mg Tab.er.12h, 1 TAB PO Q12, #60 TAB Prov:ESTHER LYNCH 10/28/16 Promethazine HCl/Codeine (Prometh-Codein 6.25-10 mg/5 ml) 5 Ml Syrup, 5 ML PO TID for 5 Days Prov:ESTHER LYNCH 10/28/16 Prednisone* (Prednisone*) 20 Mg Tab, 40 MG PO DAILY for 4 Days, TAB Prov:ESTHER LYNCH 10/28/16 Azithromycin* (Zithromax*) 250 Mg Tablet, 250 MG PO .Z[place] DIRECTED, #6 TAB TAKE 500 MG (2 TABS) THE FIRST DAY THEN 250 MG (1 TAB) DAYS 2-5 Prov:ESTHER LYNCH 10/28/16 Docusate Sodium* (Colace*) 100 Mg Capsule, 100 MG PO BID, #60 CAP Prov:PATRICIO WILD MD 01/09/16 Allergies Allergies: Coded Allergies: Penicillins (Verified Allergy, Mild, RASH, 03/31/17) Uncoded Allergies: IV CONTRAST (Allergy, Unknown, RASH, 06/12/15) PMhx/Soc History of Surgery: Yes (c section; gallbladder surgery, tubal) Anesthesia Reaction: No Hx Neurological Disorder: Yes (Migraines) Hx Respiratory Disorders: No Hx Cardiac Disorders: Yes (hypertension; hypercholesterolemia) Hx Psychiatric Problems: Yes (anxiety) Hx Miscellaneous Medical Probl: Yes (bone on bone she says left ankle in therapy) Hx Alcohol Use: Yes (occasional) Hx Substance Use: No Hx Tobacco Use: No FmHx Family History: No diabetes Physical Exam Vitals Vital Signs Date Time Temp Pulse Resp B/P Pulse Ox O2 Delivery O2 Flow Rate FiO2 03/31/17 16:00 98.6 62 18 142/71 99 Physical Exam General: Well developed, well nourished, no acute distress Head: Normocephalic, atraumatic. Eyes: Pupils equally reactive, EOM intact ENT: Moist mucous membranes Neck: Supple, no lymphadenopathy Respiratory: Lungs clear bilaterally, no distress Cardiovascular: RRR, no murmurs, rubs, or gallops Abdominal: Soft, non-tender, non-distended, no peritoneal signs Back: Very mild left-sided soft tissue tenderness to palpation to the paraspinal muscles, no midline tenderness deformities or step-offs : Deferred MSK: No edema, no unilateral swelling, 5/5 strength Neurologic: Alert and oriented, moving all extremities, normal speech, no focal weakness, no cerebellar signs Skin: No rash Psych: Normal mood Result Diagram: 03/31/17182903/31/171829 Results 24 hrs Laboratory Tests Test 03/31/17 18:30 White Blood Count 6.310^3/ul Red Blood Count 4.9710^6/ul Hemoglobin 14.9g/dl Hematocrit 43.2% Mean Corpuscular Volume 86.9fl Mean Corpuscular Hemoglobin 30.0pg Mean Corpuscular Hemoglobin Concent 34.5g/dl Red Cell Distribution Width 12.7% Platelet Count 95701^3/UL Mean Platelet Volume 11.0fl Neutrophils % 66.3% Lymphocytes % 26.9% Monocytes % 4.9% Eosinophils % 1.1% Basophils % 0.3% Nucleated Red Blood Cells % 0.0/100WBC Neutrophils # (Manual) 410^3/ul Lymphocytes # 1.710^3/ul Monocytes # 0.310^3/ul Eosinophils # 0.110^3/ul Basophils # 0.010^3/ul Nucleated Red Blood Cells # 0.010^3/ul Urine Color STRAW Urine Clarity CLEAR Urine pH 6.0 Urine Specific [place] 1.004 Urine Ketones NEGATIVEmg/dL Urine Nitrite NEGATIVEmg/dL Urine Bilirubin NEGATIVEmg/dL Urine Urobilinogen NEGATIVEmg/dL Urine Leukocyte Esterase NEGATIVELeu/ul Urine Microscopic RBC 0/HPF Urine Microscopic WBC 0/HPF Urine Hemoglobin 1+mg/dL Urine Glucose NEGATIVEmg/dL Urine Total Protein NEGATIVEmg/dl Sodium Level 146mmol/L Potassium Level 3.9mmol/L Chloride Level 100mmol/L Carbon Dioxide Level 27mmol/L Anion Gap 23 Blood Urea Nitrogen 13mg/dl Creatinine 0.80mg/dl Glucose Level 88mg/dl Calcium Level 10.1mg/dl Total Bilirubin 0.6mg/dl Direct Bilirubin 0.00mg/dl Indirect Bilirubin 0.6mg/dl Aspartate Amino Transf (AST/SGOT) 34IU/L Alanine Aminotransferase (ALT/SGPT) 42IU/L Alkaline Phosphatase 105IU/L Total Protein 9.6g/dl Albumin 5.1g/dl Globulin 4.50g/dl Albumin/Globulin Ratio 1.13 Lipase 225U/L Serum HCG, Qualitative NEGATIVE Current Medications Medications (Trade) Dose Ordered Sig/Gladys Route PRN Reason Start Time Stop Time Status Last Admin Dose Admin Sodium Chloride (NS) 500 ml @ 500 mls/hr Q1H STAT IV 03/31/17 18:30 03/31/17 19:29 DC 03/31/17 18:42 Morphine Sulfate (morphine) 4 mg ONCE STAT IV 03/31/17 18:30 03/31/17 18:32 DC 03/31/17 18:42 Ondansetron HCl (Zofran Inj) 4 mg ONCE STAT IV 03/31/17 18:30 03/31/17 18:32 DC 03/31/17 18:42 Ketorolac Tromethamine (Toradol) 15 mg ONCE STAT IV 03/31/17 18:30 03/31/17 18:32 DC 03/31/17 18:42 Procedures/MDM EKG, MONITORS, & DIAGNOSTIC IMAGING: CT abdomen and pelvis: IMPRESSION: 1. No acute abnormalities are identified. There is no evidence of appendicitis , bowel obstruction or obstructive uropathy. 2. Scattered sigmoid diverticula are present without evidence of diverticulitis. 3. Status post cholecystectomy. RPTAT:AAJJ LAB INTERPRETATION: No leukocytosis, no evidence of urinary tract infection MEDICAL DECISION MAKING: The patient presents with persistent left flank and back pain. Differential includes musculoskeletal, nephrolithiasis, ureterolithiasis, pyelonephritis. I am not convinced that the patient's diagnosis was consistent with nephrolithiasis during recent ER visit as I do not believe her pain was related to a right-sided renal stone. For this reason CT imaging of the abdomen and pelvis will be obtained to rule out acute process. ER COURSE: The patient was given IV fluids pain medication The patient has improved symptoms. Her laboratory testing and diagnostic imaging is unrevealing. I do not believe this is consistent renal colic. Given the patient's age and body habitus I believe this is more consistent with lumbar muscle spasm versus radiculopathy. I believe the patient will benefit from physical therapy, muscle relaxants, weight loss and exercise. I kept the patient and/or family informed of laboratory and diagnostic imaging results throughout the emergency room course. DISPOSITION PLAN: We discussed follow up with the patient's primary care doctor within 24 to 48 hours as needed. We also discussed return to the emergency room for worsening symptoms or worsening condition. Outpatient referral: [None required] Discharge Medications: [place], Zofran, Motrin, Valium We discussed the use of narcotics including avoidance of operating heavy machinery and driving as well as its addictive properties. Departure Diagnosis: Primary Impression: Left flank pain Additional Impression: Lumbar back pain Chronicity: acute Back pain laterality: left Sciatica presence: without sciatica Qualified Code: M54.5 - Acute left-sided low back pain without sciatica Condition: Stable EVELIA HACKETT MD Mar 31, 2017 19:06
[2017-03-31 19:12] LABS: ALBUMIN 5.1 g/dl (3.3-4.9); ALBUMIN/GLOBULIN RATIO 1.13; BILIRUBIN,INDIRECT 0.6 mg/dl (0-1.1); BILIRUBIN,TOTAL 0.6 mg/dl (0.2-1.3); CALCIUM 10.1 mg/dl (8.4-10.2); CREATININE 0.8 mg/dl (0.44-1.00); POTASSIUM 3.9 mmol/L (3.5-5.1); TOTAL PROTEIN 9.6 g/dl (6.1-8.1)
--- NOTE | 2017-03-31 20:28 | RADRPT ---
PROCEDURE: CT abdomen and pelvis without contrast. CLINICAL INDICATION: Abdominal Pain TECHNIQUE: CT scan of the abdomen and pelvis without contrast was performed on a multi-slice CT [facility]. The patient was scanned without intravenous contrast. 3-D sagittal and coronal reformatted images were obtained from the axial source images. CTDI: 11.57 and DLP: 605.01 One or more of the following post reduction techniques were used: Automated exposure control. Adjustment of the mA and/or kV according to patient's size. Use of iterative reconstruction technique. COMPARISON: 01/09/2016 FINDINGS: Incidental images through the lung bases reveal no evidence of focal basilar consolidation or pleura l effusion. The liver, spleen, pancreas and adrenal glands are unremarkable for noncontrast study. The gallbladd er is surgically absent. The kidneys are bilaterally symmetrical without evidence of hydronephrosis . There is no evidence of obstructive uropathy. No significant retroperitoneal adenopathy is identified. Atherosclerotic changes are seen in the ab dominal aorta without evidence of aneurysm. A retroaortic left renal vein is again seen. This is a normal variant. The stomach is grossly unremarkable. There is no evidence of small bowel obstruction. A normal appe ndix is identified. There are scattered sigmoid diverticula without evidence of diverticulitis.. N o free fluid or free intraperitoneal air is identified. Evaluation of the osseous structures reveal s no acute change. IMPRESSION: 1. No acute abnormalities are identified. There is no evidence of appendicitis, bowel obstruction o r obstructive uropathy. 2. Scattered sigmoid diverticula are present without evidence of diverticulitis. 3. Status post cholecystectomy. RPTAT:AAJJ Physician Michael Date Time Electronically viewed and signed by Physician Michael on 03/31/2017 20:28 BILLY/
[2017-03-31] MEDS ORDERED: DIAZ-90 PO (20:38)
[2017-03-31] MEDS ORDERED: HYDR-902 PO (20:38)
[2017-03-31] MEDS ORDERED: IBUP800T25 PO (20:38)
[2017-03-31 20:58] VITALS: BP 155/76; PULSE 59; RESP 20; TEMP 98.6
== END 2017-03-31 21:00 | disposition home or self-care (01) ==
LOC: E/R 15:49
DX: R10.9 Unspecified abdominal pain (principal); M54.5 Low back pain; I10 Essential (primary) hypertension
CPT/HCPCS: 36415; 74176; 80053; 81001; 83690; 84703; 85025; 87086; 96374; 96375; J1885; J2270; J2405; J7040; Z7502

== ENCOUNTER 2017-04-05 23:20 | Emergency (ER) | payer OTHER ==
[~2017-04-05] VITALS: Ht 149.9 cm; Wt 78.0 kg
[~2017-04-05 23:20] MED LIST changes: -ASC500 PO; -ATOR20TA38 PO; -AZIT250T94 PO; -CETI1TAB6 PO; -CIPR750T3 PO; +DIAZ-90 PO; -DOCU-144 PO; +FENO145T19 PO; +HYDR-902 PO; -IBUP400T22 PO; +IBUP800T25 PO; -IMO2 PO; -LORA10TA3 PO; +LOSA25TA5 PO; -OMEG1CAP2 PO; -ONDA4TAB14 PO; -PRED20TA PO; -PROM5SYR2 PO
[2017-04-05 23:40] VITALS: Ht 149.9 cm; Wt 78.0 kg
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
[2017-04-06] MEDS ORDERED: LORAZEPAM 1 MG TAB PO ONE (00:30)
--- NOTE | 2017-04-06 00:51 | RADRPT ---
PROCEDURE: XR Chest. CLINICAL INDICATION: Chest pressure. TECHNIQUE: Single frontal chest x-ray. COMPARISON: 10/27/2016 FINDINGS: The cardiomediastinal silhouette is unremarkable. There is no congestive heart failure.. No focal i nfiltrate is seen. There is no pleural effusion. There is no pneumothorax. The osseous structures are unremarkable. IMPRESSION: 1. No active disease. RPTAT: HMVK .Mayur Cadena MD, MD Date Time Electronically viewed and signed by .Mayur Cadena MD, on 04/06/2017 00:50 .K/
[2017-04-06 02:27] VITALS: BP 157/87; PULSE 73; RESP 18; TEMP 98.5
== END 2017-04-06 02:31 | disposition home or self-care (01) ==
LOC: FTE 23:20
DX: F41.9 Anxiety disorder, unspecified (principal); I10 Essential (primary) hypertension
CPT/HCPCS: 71010; 93005; Z7502; Z7610

== ENCOUNTER 2018-05-14 12:54 | Emergency (ER) | END 2018-05-14 17:22 | disposition home or self-care (01) ==

== ENCOUNTER 2018-07-14 14:49 | Emergency (ER) | END 2018-07-14 23:20 | disposition home or self-care (01) ==

== ENCOUNTER 2018-07-20 16:54 | Emergency (ER) | END 2018-07-20 20:07 | disposition home or self-care (01) ==